=== PATIENT | female | born 1960 | race Caucasian/White ===

== ENCOUNTER 2020-09-08 11:00 | Outpatient (RCR) | payer MEDICARE, OTHER, SELFPAY ==
[2020-09-08 11:12] VITALS: BMI 29.2
[2020-09-08 11:16] VITALS: BMI 29.2
== END 2020-11-24 07:07 | disposition home or self-care (01) ==
LOC: ANHDMC 11:00
PROVIDERS: Visit Provider Internal Medicine Endocrinology, Diabetes & Metabolism
DX: E10.65 Type 1 diabetes mellitus with hyperglycemia (principal); Z71.89 Other specified counseling; Z71.3 Dietary counseling and surveillance
CPT/HCPCS: 97802; G0108

== ENCOUNTER 2020-10-07 11:07 | Outpatient (CLI) | payer MEDICARE, OTHER, SELFPAY ==
[2020-10-07 17:21] LABS: Free T4 Free Thyroxine 1.38 ng/mL (0.78-2.19)
== END 2020-10-07 11:08 | disposition home or self-care (01) ==
LOC: ANHVADLAB 11:27 → ANHWCLAB 11:45
PROVIDERS: Visit Provider Internal Medicine Endocrinology, Diabetes & Metabolism
DX: E10.65 Type 1 diabetes mellitus with hyperglycemia (principal); E03.9 Hypothyroidism, unspecified
CPT/HCPCS: 36415; 84439; 84443

== ENCOUNTER 2021-04-13 08:46 | Outpatient (RCR) | payer MEDICARE, OTHER, SELFPAY ==
--- NOTE | 2021-04-13 10:00 | PTOPEVAL ---
Thank you for referring Shirley Russ to [facility].? The patient is scheduled to be seen for therapy? ____x/week for ___ weeks. Please review, sign, date and return this plan of care [id number]. I agree with and certify that the following plan of care is medically necessary. Referring Physician Date Admitting Provider: Attending Provider: Almaz Oneill MD Referring Provider: *PT Outpatient Evaluation Start: 04/13/21 09:01 Freq: Status: Active Protocol: Document 04/13/21 09:01 ACR (Rec: 04/13/21 09:59 ACR [email or web address]) Therapy Assessment Status Assessment Status Assessment Status Evaluation Outpatient Past Medical History Neurological History Hx Neurological Disorders No Significant History Cardiovascular History Hx Hypercholesterolemia Yes Hx Hypertension Yes Respiratory History Hx Asthma Yes Gastrointestinal History Hx Other Gastrointestinal Disorders Yes: Diarrhea from [place]; took once and took months to get over Genitourinary History Hx Genitourinary Disorders No Significant History Musculoskeletal History Hx Rheumatoid Arthritis Yes Hematological History Hx Hematological Disorders No Significant History Endocrine History 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, adult onset Hx Hypothyroidism Yes HEENT History Hx HEENT Disorders No Significant History Integumentary History Hx Psoriasis Yes: Comes and goes Reproductive History Hx Other Reproductive Disorders Yes: 5 pregnancies, 3 kids, 2 miscarriages Psychosocial History Hx Psychiatric Disorders No Significant History Pain History History of Any Previous or Ongoing No Significant History Instance of Pain Anesthesia History Hx Anesthesia Reactions No Significant History Evaluation Information Problem Diagnosis LBP with L sciatica Onset 01/19/21 Subjective Information Patient states that she is Query Text:As Reported By Patient/ trying to avoid surgery, but Family she has a herniated disc at L3 -L4 that has led to foot drop. She states that she had therapy another time and they did traction and she believes it made it worse. She states that she has gotten three cortizone injections and they only lasted a couple of days. The patient states that she has radicular symptoms down
--- NOTE | 2021-08-23 14:53 | PCPTNOTE ---
Mrs. Russ attended a total of 6 treatment sessions from 04/13/21 to 04/26/21. She has failed to return to the clinic or contact the clinic. She will be discharged from our care at this time.
== END 2021-04-26 23:59 | disposition home or self-care (01) ==
LOC: CHSPT 08:46
PROVIDERS: PCP Family Medicine; Visit Provider Family Medicine
DX: M54.42 Lumbago with sciatica, left side (principal); G57.02 Lesion of sciatic nerve, left lower limb
CPT/HCPCS: 97014; 97110; 97161; 97530; G0283